=== PATIENT | male | born 2000 | race Asian ===

== ENCOUNTER 2023-11-01 08:50 | Outpatient (CLI) | payer BC, SELFPAY ==
--- NOTE | 2023-11-01 09:00 | CT_ITS ---
Patient: CYNTHIA CASTRO Facility:?[facility] Patient ID:?[id number] Site Patient ID:?[id number]. Site :?[id number] Study:?CT-Sinus WITHOUT-11/01/2023 9:12:21 AM Ordering Physician:PHYLLIS Final Report: CLINICAL HISTORY: Chronic sinusitis. TECHNIQUE: CT of the paranasal sinuses without contrast. COMPARISON: None. FINDINGS: Anterior sinus group (frontal sinuses and anterior ethmoid air cells/frontoethmoidal recesses: The frontal sinuses are well aerated. There is a right-sided inferior ethmoid air cells/Carolyn cell which is almost completely opacified with frothy secretions. The anterior ethmoid air cells are otherwise well aerated. The frontoethmoidal drainage pathways are not obstructed. Posterior sinus group (posterior ethmoid air cells and sphenoid sinuses)/sphenoethmoidal recesses: There is a small polyp or retention cyst within a left posterior ethmoid air cell. The sphenoid sinuses are well aerated. The sphenoethmoidal drainage pathways are not obstructed. Maxillary sinuses and ostiomeatal complexes: Trace mucosal thickening within the maxillary sinuses. Small focus of soft tissue or secretions along the left superior medial maxillary sinus. Maxillary sinus ostia and infundibular outflow tracts are not obstructed. Turbinates: Within normal limits. Nasal septum: Minimal leftward deviation. Nasal cavity: No obstructive lesions. Skullbase, maxilla, TMJ: Keros type 2 on the left. Keros type 2 on the right. No lytic or blastic osseous lesions. No periapical tooth lucencies. Mastoid air cells are clear. Orbital contents: Within normal limits. Imaged intracranial contents: Within normal limits. Imaged soft tissues structures: Within normal limits. IMPRESSION: 1. Scattered sites of nonobstructive paranasal sinus opacification as detailed above, most prominently involving a right-sided inferior ethmoid air cells/Carolyn cell, which is almost completely opacified with frothy secretions. 2. Minimal leftward nasal septal deviation. Please note that all CT scans at this facility use dose modulation, iterative reconstruction, and/or weight-based dosing when appropriate to reduce radiation dose to as low as reasonably achievable. Dictated by Sin Yeboah MD @ 11/01/2023 11:11:18 AM Signed by:?Sin Yeboah MD @11/01/2023 11:11:18 AM (Electronic Signature)
== END 2023-11-01 08:51 | disposition home or self-care (01) ==
LOC: CT 08:56
PROVIDERS: Visit Provider Otolaryngology
DX: J32.9 Chronic sinusitis, unspecified (principal); J34.2 Deviated nasal septum
CPT/HCPCS: 70486

== ENCOUNTER 2024-01-20 10:54 | Day surgery (SDC) | payer BC, SELFPAY ==
[2024-01-20] VITALS (12 sets, daily range): BP systolic 119–131; BP diastolic 74–83; PULSE 55–85; RESP 16; TEMP 36.4–36.9; O2SAT 97–100; BMI 21.8
[2024-01-20] MEDS: LACTATED RINGERS 1000 ML 1,000 ML 100 ML IV (11:20)
[2024-01-20] MEDS: OXYMETAZOLINE 0.05% NASAL SPRAY 2 SPRAY NOSTRIL-B (11:20)
[2024-01-20] MEDS: SODIUM CHLORIDE 0.9 % (FLUSH) 10 ML SYRINGE IVF (11:20)
[2024-01-20] MEDS: SCOPOLAMINE 1 MG/3 DAY PATCH 1 PATCH TRANSDERMA (11:44)
[2024-01-20] MEDS: COCAINE HCL 4 % 4 ML SOLUTION NOSTRIL-B (12:15)
[2024-01-20] MEDS: BUPIVACAINE 0.5%/EPINEPHRINE 0.9 MG (30.9 ML) INJECTION (12:15)
--- NOTE | 2024-01-20 12:18 | W.ANESCHARGE ---
Anesthesia Charges Start Date/Time Anesthesia Start Date: 01/20/24 Anesthesia Start Time: 11:57 Stop Date/Time Anesthesia Stop Date: 01/20/24 Anesthesia Stop Time: 12:56
[2024-01-20] MEDS: AYR SALINE NASAL GEL 1 APPLIC NOSTRIL-B (12:25)
[2024-01-20] MEDS: MUPIROCIN 1 GM PACKET 1 APPLIC TOPICAL (12:30)
--- NOTE | 2024-01-20 12:57 | W.ANESCHARGE ---
Anesthesia Charges Start Date/Time Anesthesia Start Date: 01/20/24 Anesthesia Start Time: 11:57 Stop Date/Time Anesthesia Stop Date: 01/20/24 Anesthesia Stop Time: 12:56
[2024-01-20] MEDS: LACTATED RINGERS 1000 ML 1,000 ML 35 ML IV (13:02)
--- NOTE | 2024-01-20 13:26 | W.PM.ENTPROC ---
Procedure Note Date of procedure: 01/20/24 Procedure: Nasal obstruction, deviated septum, chronic right anterior ethmoid rhinosinusitis, bilateral inferior turbinate hypertrophy right greater than left Postoperative diagnosis same Procedure nasal septoplasty, submucous partial resection inferior turbinates bilateral, image guided endoscopic right anterior ethmoidectomy Under general trach anesthesia patient was prepped and draped usual fashion nose decongested injected. A room stab incision was made in the anterior of the right inferior turbinate a tunnel created with a Darian dissector. A conservative anterior submucous resection was performed. The Coblation was used for hemostasis and to cauterize intramurally along the inferior 10%. This was repeated on the left side in identical fashion. A right hemitransfixion incision was made left anterior and posterior tunnels were created. A vertical incision made the cartilage and a right posterior tunnel created. The posterior deflected portions of septal bone resected in 2 pieces trimmed returned to intraseptal space. There is a left premaxillary wing deformity that was quite large that was removed with a chisel. A normal amount of cartilage was present for dorsal and tip support. The anterior ethmoid cells were opened and this and followed into the very 1st still inside the maxillary sinus. I removed a small amount of polypoid tissue. Very image guidance was used to verify position. The hemitransfixion was closed with 2 4-0 chromic sutures stents secured with 3-0 nylon. A Merocel sponge pack was placed in each side of the nose. The patient procedure well was taken recovery in satisfactory condition. Blood loss less than 10 mL. Surgeon: Brigido Chen MD
[2024-01-20] MEDS: IBUPROFEN 200 MG TABLET PO (14:01)
== END 2024-01-20 14:31 | disposition home or self-care (01) ==
LOC: OR 10:55
PROVIDERS: Visit Provider Otolaryngology
PROC: (CPT 31231; principal; 2024-01-20 12:15)
DX: J34.3 Hypertrophy of nasal turbinates (principal); J32.2 Chronic ethmoidal sinusitis; J34.2 Deviated nasal septum; J34.89 Other specified disorders of nose and nasal sinuses
CPT/HCPCS: 30520; 30140; 31254; 00160; 00170; 88305; A9270; J1100; J2250; J2405; J2704; J2710; J3010; J7120